=== PATIENT | male | born 1960 | race Caucasian/White ===

== ENCOUNTER 2023-07-12 23:22 | Emergency (ER) | payer OTHER ==
[~2023-07-12] VITALS: Ht 149.9 cm; Wt 52.2 kg
[2023-07-12 23:38] VITALS: BP 130/72; PULSE 98; RESP 18; TEMP 97.2; O2SAT 96
[2023-07-13 01:50] LABS: BASOPHILS % (AUTO) 0.3 % (0.0-2.0); EOSINOPHILS # (AUTO) 0.1 K/uL (0-0.4); EOSINOPHILS % (AUTO) 1.4 % (0.0-4.0); HEMATOCRIT 35.2 % (36-52); HEMOGLOBIN 12.3 g/dL (12.0-18.0); LYMPHOCYTES # (AUTO) 1.5 K/uL (2.0-11.5); LYMPHOCYTES % (AUTO) 24.9 % (20.5-51.1); MEAN CORPUSCULAR HEMOGLOBIN 32 pg (27-31); MEAN CORPUSCULAR HGB CONC 35 g/dL (33-37); MEAN CORPUSCULAR VOLUME 91.1 fL (80-94); MONOCYTES # (AUTO) 0.5 K/uL (0.8-1.0); MONOCYTES % (AUTO) 8.5 % (1.7-9.3); NEUTROPHILS # (AUTO) 3.8 K/uL (1.8-7.7); NEUTROPHILS % (AUTO) 64.9 % (42.2-75.2); PLATELET COUNT (AUTO) 191 K/uL (140-450); RED BLOOD CELL COUNT(AUTO) 3.86 MIL/uL (4.20-6.10); RED CELL DISTRIBUTION WIDTH 14.1 % (11.6-13.7); WHITE BLOOD COUNT (AUTO) 5.9 K/uL (4.8-10.8)
[2023-07-13 02:25] LABS: ANION GAP 12.6 (8-16); CALCIUM 9.2 mg/dL (8.5-10.1); CARBON DIOXIDE 26.5 mmol/L (21-32); CREATININE 0.7 mg/dL (0.6-1.3); POTASSIUM 4.1 mmol/L (3.5-5.1)
[2023-07-13 02:29] LABS: ALANINE AMINOTRANSFERASE 8 U/L (12-78); ALBUMIN 3.8 g/dL (3.4-5.0); ALCOHOL, BLOOD < 3 mg/dL (<10); ALKALINE PHOSPHATASE 105 U/L (50-136); ASPARTATE AMINOTRANSFERASE 22 U/L (15-37); BILIRUBIN,DIRECT 0.1 mg/dL (0.0-0.3); SALICYLATE < 2.8 mg/dL (2.8-20.0); TOTAL BILIRUBIN 0.4 mg/dL (0.0-1.0); TOTAL PROTEIN, SERUM 7.3 g/dL (6.4-8.2)
[2023-07-13] MEDS ORDERED: LORazepam 2 MG/ML VIAL IM ONE (04:15)
[2023-07-13] MEDS ORDERED: AMAN-72 PO (16:32)
[2023-07-13] MEDS ORDERED: CARB1ODT4 PO (16:32)
[2023-07-13] MEDS ORDERED: OLAN2.5T1 PO (16:32)
[2023-07-13] MEDS ORDERED: CLON0.5T PO (16:32)
[2023-07-13] MEDS ORDERED: CARB1TER9 PO (16:32)
[2023-07-13] MEDS ORDERED: METF-346 PO (16:32)
[2023-07-13 17:14] VITALS: TEMP 98.2
[2023-07-13 20:00] VITALS: BP 136/73; PULSE 93; RESP 16
[2023-07-13 20:00] LABS: AMPHETAMINE, URINE NEGATIVE ng/ml (NEG <=1000); BARBITURATE, URINE NEGATIVE ng/ml (NEG <=200); BENZODIAZEPINE, URINE NEGATIVE ng/mL (NEG <=200); CANNABINOID, URINE NEGATIVE ng/mL (NEG <=50); COCAINE, URINE NEGATIVE ng/mL (NEG <=300); OPIATE, URINE NEGATIVE ng/mL (NEG <=2000); PHENCYCLIDINE SCREEN,URINE NEGATIVE ng/mL (NEG <=25)
[2023-07-13 20:33] VITALS: O2SAT 99
[2023-07-13] MEDS: AMANTADINE 100 MG CAP PO SCH (22:15)
[2023-07-13 22:56] VITALS: O2SAT 99
[2023-07-14 01:32] VITALS: O2SAT 99
[2023-07-14 04:15] VITALS: O2SAT 99
[2023-07-14 07:58] VITALS: O2SAT 99
[2023-07-14] MEDS ORDERED: metFORMIN 500 MG TAB PO SCH (08:00)
[2023-07-14] MEDS: CARBIDOPA/LEVODOPA 25/100 MG 1 TAB PO SCH ×2 (10:56→12:05)
[2023-07-14] MEDS: AMANTADINE 100 MG CAP PO SCH (11:32)
[2023-07-14] MEDS ORDERED: clonazePAM 0.5 MG TAB PO SCH (17:00)
== END 2023-07-14 12:45 | disposition home or self-care (01) ==
LOC: MED 23:22
DX: R45.850 Homicidal ideations (principal); G20.A1 Parkinson's disease without dyskinesia, without mention of fluctuations; F20.9 Schizophrenia, unspecified; E11.9 Type 2 diabetes mellitus without complications; Z79.899 Other long term (current) drug therapy
CPT/HCPCS: 36415; 80048; 80076; 80305; 84484; 85025; 93005; 96372; 99285; G0480; G0482; J2060